=== PATIENT | male | born 1990 | race Caucasian/White ===

== ENCOUNTER → 2019-06-13 | Outpatient (CLI) | payer BC ==
[~2019-06-13] MED LIST: AMOXICILLIN500 MG PO; CIPROFLOXACIN500 MG PO; LOMOTIL 0.025 M1 TAB PO; PHENERGAN25 M1 PO
== END | disposition home or self-care (01) ==
LOC: US 09:11
DX: R10.84 Generalized abdominal pain (principal)

== ENCOUNTER → 2023-09-11 | Outpatient (CLI) | payer BC ==
[~2023-09-11] MED LIST changes: +HYDROCODONE-AC1 EAC1 PO
== END | disposition home or self-care (01) ==
LOC: ORTHO 09:46
PROVIDERS: ATTEND Orthopaedic Surgery
DX: S62.603A Fracture of unspecified phalanx of left middle finger, initial encounter for closed fracture (principal); X58.XXXA Exposure to other specified factors, initial encounter; Y93.89 Activity, other specified; Y92.89 Other specified places as the place of occurrence of the external cause; Y99.8 Other external cause status

== ENCOUNTER → 2023-09-25 | Outpatient (CLI) | payer BC | LOC: ORTHO 02:47 | PROVIDERS: ATTEND Orthopaedic Surgery | DX: S62.603D Fracture of unspecified phalanx of left middle finger, subsequent encounter for fracture with routine healing (principal); S62.657D Nondisplaced fracture of middle phalanx of left little finger, subsequent encounter for fracture with routine healing; X58.XXXD Exposure to other specified factors, subsequent encounter ==

== ENCOUNTER → 2023-10-02 | Outpatient (CLI) | payer BC | END | disposition home or self-care (01) | LOC: ORTHO 02:05 | PROVIDERS: ATTEND Orthopaedic Surgery | DX: S62.663D Nondisplaced fracture of distal phalanx of left middle finger, subsequent encounter for fracture with routine healing (principal); X58.XXXD Exposure to other specified factors, subsequent encounter ==